=== PATIENT | male | born 2000 | race Caucasian/White ===

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

== ENCOUNTER 2022-03-24 21:30 | Emergency (ER) | payer OTHER ==
[~2022-03-24] VITALS: Ht 182.8 cm; Wt 107.0 kg
[~2022-03-24 21:30] MED LIST changes: +AUGMENTIN 875-875 MG PO
[2022-03-24] MEDS ORDERED: NAPROXEN250 MG PO (22:34)
== END 2022-03-24 22:52 | disposition home or self-care (01) ==
LOC: ED 21:30
DX: M77.8 Other enthesopathies, not elsewhere classified (principal); M25.532 Pain in left wrist; Z79.899 Other long term (current) drug therapy

== ENCOUNTER 2022-04-15 13:38 | Emergency (ER) | payer OTHER ==
[~2022-04-15] VITALS: Ht 180.3 cm; Wt 107.0 kg
[~2022-04-15 13:38] MED LIST changes: +NAPROXEN250 MG PO
[2022-04-15] MEDS ORDERED: Bactroban Oint22 GM T (14:36)
[2022-04-15] MEDS ORDERED: CEPHALEXIN500 M1 PO (14:36)
== END 2022-04-15 16:41 | disposition home or self-care (01) ==
LOC: ED 13:38
DX: L03.011 Cellulitis of right finger (principal); Z79.899 Other long term (current) drug therapy

== ENCOUNTER 2022-08-03 19:27 | Emergency (ER) | payer OTHER ==
[~2022-08-03] VITALS: Ht 180.3 cm; Wt 108.9 kg
[~2022-08-03 19:27] MED LIST changes: +Bactroban Oint22 GM T; +CEPHALEXIN500 M1 PO
== END 2022-08-03 21:37 | disposition home or self-care (01) ==
LOC: ED 19:27
DX: S62.306A Unspecified fracture of fifth metacarpal bone, right hand, initial encounter for closed fracture (principal); F10.90 Alcohol use, unspecified, uncomplicated; W22.8XXA Striking against or struck by other objects, initial encounter; Y93.89 Activity, other specified; Y92.89 Other specified places as the place of occurrence of the external cause; Y99.8 Other external cause status

== ENCOUNTER 2022-10-20 17:20 | Emergency (ER) | payer OTHER ==
[~2022-10-20] VITALS: Ht 180.3 cm; Wt 113.4 kg
== END 2022-10-20 18:35 | disposition left against medical advice (07) ==
LOC: ED 17:20
DX: J11.1 Influenza due to unidentified influenza virus with other respiratory manifestations (principal); Z53.21 Procedure and treatment not carried out due to patient leaving prior to being seen by health care provider

== ENCOUNTER 2023-08-03 22:00 | Emergency (ER) | payer SELFPAY ==
[2023-08-03] MEDS ORDERED: CEPHALEXIN500 M1 PO (23:40)
== END 2023-08-04 00:04 | disposition home or self-care (01) ==
LOC: ED 22:00
DX: S61.411A Laceration without foreign body of right hand, initial encounter (principal); F90.9 Attention-deficit hyperactivity disorder, unspecified type; W26.0XXA Contact with knife, initial encounter; Y93.89 Activity, other specified; Y92.89 Other specified places as the place of occurrence of the external cause; Y99.8 Other external cause status

== ENCOUNTER 2023-08-15 17:29 | Emergency (ER) | payer SELFPAY | END 2023-08-15 18:50 | disposition left against medical advice (07) | LOC: ED 17:29 | DX: Z48.00 Encounter for change or removal of nonsurgical wound dressing (principal); Z53.21 Procedure and treatment not carried out due to patient leaving prior to being seen by health care provider ==

== ENCOUNTER 2024-04-30 17:36 | Emergency (ER) | payer SELFPAY ==
[~2024-04-30] VITALS: Ht 180.3 cm; Wt 106.6 kg
[2024-04-30] MEDS ORDERED: VIBRAMYCIN100 MG PO (18:56)
[2024-04-30] MEDS ORDERED: Doxycycline Hyclate 100 MG CAP PO ONE (19:00)
== END 2024-04-30 19:15 | disposition home or self-care (01) ==
LOC: ED 17:36
DX: N50.3 Cyst of epididymis (principal)

== ENCOUNTER 2024-09-15 16:05 | Emergency (ER) | payer SELFPAY ==
[~2024-09-15] VITALS: Ht 180.3 cm; Wt 117.9 kg
[~2024-09-15 16:05] MED LIST changes: +VIBRAMYCIN100 MG PO
[2024-09-15] MEDS ORDERED: Ondansetron Hydrochloride 4 MG TAB SL ONE (17:55)
[2024-09-15 18:24] LABS: BASO % 0.3 % (0.0-1.0); EOS % 0.4 % (1.0-4.0); HEMATOCRIT 49.3 % (42.0-52.0); MEAN CELL VOLUME 87.9 fl (80.0-94.0); MEAN CORPUSCULAR HGB 29.4 pg (27.0-31.0); MEAN CORPUSCULAR HGB CONC 33.5 g/dl (33.0-37.0); MEAN PLATELET VOLUME 9.4 fl (9.6-12.3); MONO % 10.5 % (3.0-9.0); NEUT # 7.6 10*3/uL (2.3-7.9); NEUT % 81.4 % (47.0-73.0); PLATELET COUNT AUTOMATED 203 10*3/uL (130-400); RED BLOOD COUNT 5.61 10*6/uL (4.50-5.90); RED CELL DISTRI WIDTH 11.9 % (0-14.5); WHITE BLOOD COUNT 9.3 10*3/uL (4.8-10.8)
[2024-09-15 18:47] LABS: BUN 18 mg/dl (9-23); CHLORIDE 103 mmol/L (98-107); POTASSIUM 4.1 mmol/L (3.4-5.1)
[2024-09-15] MEDS ORDERED: Ondansetron4 MG SL (18:58)
[2024-09-15] MEDS ORDERED: Ketorolac Tromethamine 30 MG/ML VIAL IM ONE (19:00)
== END 2024-09-15 19:06 | disposition home or self-care (01) ==
LOC: ED 16:05
PROVIDERS: Internal Medicine
DX: B34.9 Viral infection, unspecified (principal); Z20.822 Contact with and (suspected) exposure to COVID-19; R07.89 Other chest pain; R11.2 Nausea with vomiting, unspecified; R42 Dizziness and giddiness; F90.9 Attention-deficit hyperactivity disorder, unspecified type; Z87.891 Personal history of nicotine dependence

== ENCOUNTER 2024-12-28 21:25 | Emergency (ER) | payer SELFPAY ==
[~2024-12-28 21:25] MED LIST changes: +Ondansetron4 MG SL
[2024-12-28] MEDS ORDERED: CEPHALEXIN500 M1 PO (22:27)
[2024-12-28] MEDS ORDERED: CEPHALEXIN 500 MG CAP PO ONE (22:30)
== END 2024-12-28 22:39 | disposition home or self-care (01) ==
LOC: ED 21:25
DX: S01.412A Laceration without foreign body of left cheek and temporomandibular area, initial encounter (principal); Z87.891 Personal history of nicotine dependence; W26.8XXA Contact with other sharp object(s), not elsewhere classified, initial encounter; Y93.89 Activity, other specified; Y92.89 Other specified places as the place of occurrence of the external cause; Y99.8 Other external cause status

== ENCOUNTER 2025-03-09 11:00 | Emergency (ER) | payer SELFPAY ==
[~2025-03-09] VITALS: Ht 180.3 cm; Wt 117.9 kg
[2025-03-09] MEDS ORDERED: SODIUM CHLORIDE 0.9% 1,000 ML IV ONE (11:50)
[2025-03-09] MEDS ORDERED: Ondansetron Hydrochloride 4 MG/2 ML VIAL IV ONE (11:50)
[2025-03-09 12:03] LABS: BASO # 0.0 10*3/uL (0.0-0.1); BASO % 0.5 % (0.0-1.0); EOS # 0.2 10*3/uL (0.0-0.4); EOS % 1.8 % (1.0-4.0); MEAN CELL VOLUME 87.1 fl (80.0-94.0); MEAN CORPUSCULAR HGB 29.7 pg (27.0-31.0); MEAN PLATELET VOLUME 9.6 fl (9.6-12.3); MONO # 0.7 10*3/uL (0.1-1.0); MONO % 8.6 % (3.0-9.0); NEUT # 5.2 10*3/uL (2.3-7.9); NEUT % 63.1 % (47.0-73.0); NUCLEATED RED BLOOD CELL 0.0 % (0.0-0.0); NUCLEATED RED BLOOD CELL 0.0 10*3/uL (0.0-0.0); PLATELET COUNT AUTOMATED 212 10*3/uL (130-400); RED CELL DISTRI WIDTH 11.7 % (0-14.5)
[2025-03-09 12:15] LABS: ACT PARTIAL THROMBO TIME 25.3 SECONDS (20.0-32.1)
[2025-03-09 12:27] LABS: BUN 17 mg/dl (9-23)
[2025-03-09] MEDS ORDERED: Ondansetron4 MG PO (13:20)
== END 2025-03-09 13:26 | disposition home or self-care (01) ==
LOC: ED 11:00
PROVIDERS: Internal Medicine
DX: E86.0 Dehydration (principal); R42 Dizziness and giddiness; R11.2 Nausea with vomiting, unspecified; Z87.891 Personal history of nicotine dependence

== ENCOUNTER 2025-08-24 22:42 | Emergency (ER) | payer SELFPAY ==
[~2025-08-24] VITALS: Ht 182.8 cm; Wt 117.9 kg
[~2025-08-24 22:42] MED LIST changes: +Ondansetron4 MG PO
[2025-08-24] MEDS ORDERED: LORazepam 1 MG TAB PO ONE (23:05)
[2025-08-25] MEDS ORDERED: NAPROSYN500 MG PO (00:25)
== END 2025-08-25 00:40 | disposition home or self-care (01) ==
LOC: ED 22:42
DX: R07.89 Other chest pain (principal); R20.0 Anesthesia of skin; F90.9 Attention-deficit hyperactivity disorder, unspecified type; Z87.891 Personal history of nicotine dependence